=== PATIENT | male | born 1990 | race Caucasian/White ===

== ENCOUNTER 2019-08-02 06:12 | Emergency (ER) | payer MEDICAID, SELFPAY ==
[2019-08-02 06:14] VITALS: BP 134/73; PULSE 82; RESP 18; TEMP 36; O2SAT 98
--- NOTE | 2019-08-02 06:20 | ED.GENADUL_ITS ---
Discharge Plan Disposition Patient Disposition: HOME Condition: Good Discharge Details Chief Complaint: RespSymp Clinical Impression: Acute right otitis media, Bronchitis, URI (upper respiratory infection) Primary Care Provider: None,None ED Provider: Patricio Wolff Home Meds and New Rx's Prescriptions: New Symbicort 160-4.5 mcg/actuation HFA aerosol inhaler 2 puff IH BID Qty: 6 RF: 0 loratadine 10 mg capsule 10 mg PO DAILY Qty: 20 RF: 0 amoxicillin-pot clavulanate [Augmentin] 875-125 mg tablet 1 tab PO BID 7 Days Qty: 14 RF: 0 benzonatate [Tessalon Perles] 100 mg capsule 100 mg PO BID PRN (Reason: cough) Qty: 30 RF: 0 Discharge Instructions Instructions: Otitis Media (ED), Acute Bronchitis (ED) Additional Instructions: You have a bacterial infection in your right ear as well as bronchitis. This is likely all started from a virus. To help with the cough, please take the inhaler as directed. Please take the loratadine to help with your congestion, and the Tessalon Perles for the cough as well. Please take Augmentin as directed for treatment of your otitis media/ear infection. Continue to take Tylenol or Motrin as needed for any pain. If you notice any worsening of your symptoms, or any new symptoms such as vomiting, diarrhea, fever, chills, shortness of breath, chest pain, numbness, weakness, or fainting , please return immediately to the emergency department for reevaluation. Please follow up with your primary care provider as soon as possible for reassessment and reevaluation. As always, it was a pleasure participating in your medical care today. Medical Decision Making This is a pleasant 29-year-old male who presents today with 3 days of cough and congestion. Symptoms began with mild fever and chills 3 days ago, fever and chills have since resolved which is led to a cough for the last 3 days, productive yellow sputum. Physical exam demonstrates normal lung sounds, no evidence of respiratory distress. Notable right-sided otitis media. No clinical evidence of meningitis, respiratory compromise, or other significant abnormality. Signs and symptoms at this time are clinically consistent with mild bronchitis, mild URI symptoms and right-sided otitis media. Will give Augmentin for otitis media, loratadine for congestion, Symbicort inhaler for notable cough, Tessalon Perles for cough. Discussed red flags for which to return. Signs and symptoms at this time are clinically consistent with bronchitis, viral URI, and bacterial right-sided otitis media. I have extensively reviewed the treatment plan and discharge instructions with the patient. I have addressed all patient concerns at this time. The patient was made aware of what symptoms to monitor for that would warrant a return to the emergency department. Discussed the plan with the patient, they demonstrate verbal understanding and agreement with our assessment and plan at this time. HPI General Date/Time Provider Initiated Documentation: 08/02/19 06:12 . HPI Narrative: This is a pleasant 29-year-old male who has no significant past medical history who presents today for evaluation of cough for the last 3 days. Been notably persistent and gradually worsening. Admits to productive yellow sputum. He had one episode of small amount of blood tingeing after a vigorous episode of coughing. He denies any severe chest pain, chest heaviness, or significant shortness of breath. He denies any current fever or chills but did have some mild fever and chills 3 days ago and this symptoms all started. He denies any headache or neck pain. He does admit to mild sore throat. He denies any other complaints at this time. He denies any history of PE, recent surgeries, procedures, or history of clots. He denies any history of premature cardiac disease. He has no other complaints. No other modifying factors. He denies a rubbery, diarrhea, numbness, tingling, weakness. He denies any tobacco use. Related Data Home Medications Medication Instructions Recorded Confirmed amoxicillin-pot clavulanate 1 tab PO BID 7 Days #14 tab 08/02/19 [Augmentin] benzonatate [Tessalon Perles] 100 mg PO BID PRN #30 cap 08/02/19 budesonide-formoterol [Symbicort] 2 puff IH BID #6 gm 08/02/19 loratadine 10 mg PO DAILY #20 cap 08/02/19 Previous Rx's Medication Instructions Recorded amoxicillin-pot clavulanate 1 tab PO BID 7 Days #14 tab 08/02/19 [Augmentin] benzonatate [Tessalon Perles] 100 mg PO BID PRN #30 cap 10/20/19 budesonide-formoterol [Symbicort] 2 puff IH BID #6 gm 08/02/19 loratadine 10 mg PO DAILY #20 cap 08/02/19 Allergies Allergy/AdvReac Type Severity Reaction Status Date / Time venom-honey bee Allergy Anaphylaxsi Unverified 08/02/19 06:16 [bee venom (honey bee)] s General Stated Complaint: RespSymp SANTIAGO: 4 Review of Systems Review of Systems ROS Unobtainable: All systems reviewed & are unremarkable except as noted in HPI and below PFSH Social History Smoking/Tobacco Use Status: Never Alcohol Intake: current Alcohol Intake frequency: holidays/special occasions only Alcohol type: beer Drug use: Never Substance use type: does not use Do you feel safe at home: Yes Do you feel safe in your relationship?: Yes Exam Narrative Exam Narrative: 1.Const: Well-nourished, Well-developed, appearing stated age 2.Eyes: PERRL, no conjunctival injection, and symmetrical lids. 3.ENT: Atraumatic external nose and ears. Moist MM. Neck: Symmetric, trachea midline, No thyromegaly. Minimal erythema and cobblestoning of the posterior oropharynx. Right tympanic membrane is erythematous, slightly bulging, with mil d effusion. Left tympanic membrane demonstrates sawant pearly color, notable cerumen. No evidence of tonsillitis, peritonsillar abscess, or airway compromise. Patient demonstrates good movement of cervical neck. There is no nuchal rigidity, no nuchal tenderness. Patient is able to flex the neck without any difficulty or significant pain. Negative Kernig's and Brudzinski sign. 4.CVS: +S1/S2, No murmurs or gallops. Peripheral pulses 2+ and equal in all extremities. Brisk capillary refill in all extremities. 5.RESP: Unlabored respiratory effort. Clear to auscultation bilaterally. No wheezes rales or rhonchi 6.GI: Soft, Nontender/Nondistended, No hepatosplenomegaly. No guarding or rebound. 7.MSK: Normocephalic/Atraumatic, Extremities w/o deformity or ttp No cyanosis or clubbing, Normal movement of all extremities 8.Skin: Warm, Dry. No rashes or lesions. 9.Neuro: smoking pipes cleaner II-XII grossly intact. Sensation grossly intact, no focal neurologic deficits. 10.Psych: (AAO) x3. Appropriate mood and affect Course Vital Signs Vital signs: Vital Signs Temperature 36.0 C L 08/02/19 06:14 Pulse 82 08/02/19 06:14 Respiratory Rate 18 08/02/19 06:14 Blood Pressure 134/73 08/02/19 06:14 Pulse Oximetry 98 08/02/19 06:14 Temperature 36.0 C L 08/02/19 06:14 Temperature Source Skin 08/02/19 06:14 Pulse 82 08/02/19 06:14 Respiratory Rate 18 08/02/19 06:14 Respiratory Effort 08/02/19 06:18 Respiratory Depth Normal 08/02/19 06:17 Blood Pressure 134/73 08/02/19 06:14 Blood Pressure Position Sitting 08/02/19 06:14 Pulse Oximetry 98 08/02/19 06:14 Oxygen Delivery Method Room Air 08/02/19 06:14 Oxygen Flow Rate 0 08/02/19 06:14 Pain Level 3 08/02/19 06:14
== END 2019-08-02 06:35 | disposition home or self-care (01) ==
PROVIDERS: Emergency Provider Student in an Organized Health Care Education/Training Program
DX: H66.91 Otitis media, unspecified, right ear (principal); J20.9 Acute bronchitis, unspecified; J06.9 Acute upper respiratory infection, unspecified
CPT/HCPCS: 99283

== ENCOUNTER 2021-04-14 13:51 | Emergency (ER) | payer MEDICAID, SELFPAY ==
[2021-04-14 13:55] VITALS: BP 154/88; PULSE 86; RESP 17; TEMP 36.3; O2SAT 99
--- NOTE | 2021-04-14 14:00 | DI.CT_ITS ---
Exam(s) CT ABDOMEN PELVIS W EXAM: CT ABDOMEN PELVIS W CLINICAL HISTORY: Abd bloating, weight gain. TECHNIQUE: Imaging Protocol: Axial computed tomography images with coronal and sagittal reformatted images were created and reviewed CONTRAST MATERIAL: Intravenous: Omnipaque 350 Contrast volume:100 ml Oral: Yes COMPARISON: No exams were available for comparison FINDINGS: ABDOMEN: Lung Bases: Respiratory motion. Normal where visualized. Liver: Enlarged. Hepatic steatosis. No measurable mass. Gallbladder and biliary tract: No radiodense calculus or dilation. Pancreas: Normal density, no abnormal calcifications or inflammatory process. Spleen: Normal. Kidneys: Normal size, contour and axis. No radiodense stones or obstructive uropathy. No masses seen. Adrenal glands: No masses seen. Abdominal Aorta: Abdominal portion non-dilated. PELVIS: Bladder: Symmetric distention, no gross wall thickening. Bowel: No obstruction or bowel wall thickening. Normal appendix. Peritoneal cavity: No ascites, collection or mesenteric inflammatory response. Bones: Within normal limits. Reproductive organs: Within normal limits. Lymph nodes: Unremarkable. Impression: Unremarkable CT scan of the abdomen and pelvis. RADIATION DOSE DELIVERED: 1,148.27mGy.cm Total DLP DATA REPOSITORY: All CT scans at this facility are submitted to the National Radiology Data Registry (NRDR) Dose Index Registry (DIR) with the [employer] (ACR). RADIATION OPTIMIZATION: All CT scans at this facility use at least one of these dose optimization te chniques: automated exposure control; mA and/or kV adjustment per patient size (includes targeted exa ms where dose is matched to clinical indication); or iterative reconstruction.
--- NOTE | 2021-04-14 14:13 | ED.GENADUL_ITS ---
Discharge Plan Disposition Patient Disposition: HOME Condition: Stable Discharge Details Clinical Impression: Abdominal bloating, Chronic constipation Primary Care Provider: None,None ED Provider: Nneka Chang Home Meds and New Rx's Prescriptions: No Action No Known Home Meds RF: 0 Discharge Instructions Instructions: Constipation (ED), Gas and Bloating (ED) Additional Instructions: Drink plenty of fluids and get plenty of rest. You can purchase [id number] magnesium citrate and take as directed. It is generally recommended to drink 1/2 the bottle, wait 30 minutes and then if no relief drink the other half of the bottle. You can also add MiraLAX into your daily regimen as directed. It is advised that you research the best foods that are recommended to minimize abdominal bloating. You will receive a call from care management regarding a follow-up appointment with the primary care doctor to establish care and with general surgery if your symptoms do not improve or worsen for further evaluation. Return immediately to the emergency department if you develop any worsening or new concerning symptoms. Referrals: Zulma Guo MD [ [facility] STAFF PHYSICIAN] - Discharge Data Discharge Date/Time-TO BE ENTERED AT DEPARTURE: 04/14/21 17:26 Discharge Physician: Nneka Chang Medical Decision Making <Cuate Tian MD - Last Filed: 04/14/21 15:01> 31-year-old male reports 1 weeks to 2 months of abdominal bloating, distention, associated with pasty, unformed stools. Reports no significant change with dietary modification. Denies fever, no chest pain or shortness of breath, no vomiting. Patient slightly hypertensive but with otherwise reassuring vital signs. His exam does note some distention of the abdomen but is otherwise unremarkable. Differential diagnosis would include constipation, obstipation, intra-abdominal mass. Patient had screening laboratories and referred for CT imaging. Laboratories are fairly reassuring with a white count 10, hematocrit 46, platelets 359. Chemistries reassuring, total bili 1.2 with normal LFTs. Lipase 180. Patient be signed out to Dr. Chang pending review of CT images, please see her note regarding final impression and disposition. <Nneka Chang DO - Last Filed: 04/14/21 20:15> 1700 -- please see Dr. Tian's note for initial presentation, exam and plan. Case endorsed to follow-up on labs and imaging and final disposition. Labs reviewed. White blood cell count 10. Lipase within normal limits. Urinalysis negative CT reviewed and negative. Patient reassessed and he remains pain-free, only complaining of chronic abdominal bloating for the past 2 months. Had a long discussion with patient in the room regarding his findings and his complaints. Discussed the possibilities of abdominal bloating and distention and constipation related to diet, the possibility of irritable bowel syndrome, and recommendation to follow-up with surgery for further evaluation and consideration of outpatient EGD and colonoscopy. He is advised to try magnesium citrate tomorrow as directed. Advised to add MiraLAX into his diet as directed. Advised to continue to push fluids and to search dietary choices that minimize abdominal bloating. Patient placed on care management list to help arrange for follow-up appoint with the primary care doctor to establish care and to follow-up with surgery for further evaluation. Return immediately to the emergency department if you develop any worsening or new concerning symptoms. Medical Records Medical records reviewed: Yes I reviewed the patient's medical records. Imaging Data Radiologic Study: Radiologist's impression: CT Abdomen And Pelvis With Contrast Exam date and time: 04/14/2021 3:52 PM Age: 31 years old Clinical indication: Patient HX: Abdominal bloating; Additional info: PT states symptoms for 2 mos TECHNIQUE: Imaging protocol: Computed tomography of the abdomen and pelvis with contrast. Total images: 1201 COMPARISON: No relevant prior studies available. FINDINGS: Liver: Normal. No mass. Gallbladder and bile ducts: Normal. No calcified stones. No ductal dilation. Pancreas: Normal. No ductal dilation. Spleen: Normal. No splenomegaly. Adrenal glands: Normal. No mass. Kidneys and ureters: Normal. No hydronephrosis. Stomach and bowel: Unremarkable. No obstruction. No mucosal thickening. Appendix: No evidence of appendicitis. Intraperitoneal space: Unremarkable. No free air. No significant fluid collection. Vasculature: Unremarkable. No abdominal aortic aneurysm. Lymph nodes: Unremarkable. No enlarged lymph nodes. Urinary bladder: Unremarkable as visualized. Reproductive: Unremarkable as visualized. Bones/joints: Unremarkable. No acute fracture. Soft tissues: Unremarkable. IMPRESSION: No acute findings. Lab Data Lab results reviewed: Yes I reviewed the patient's lab results. HPI <Cuate Tian MD - Last Filed: 04/14/21 15:01> General Mode of arrival: ambulatory . Date/Time Provider Initiated Documentation: 04/14/21 13:52 . Limitations to Documentation: no limitations . Information obtained by: patient . History of Present Illness 31 year old M presents to the emergency department with the chief complaint of Abdominal bloating and weight gain, described as moderate, Quality is described as dull and constant, and is localized to the abdomen. Patient reports no radiation. Patient started experiencing this week(s) and it has been constant. No relieving factors improve symptom(s), No exacerbating factors reported . Patient notes denies fever/chills, loss of appetite and nausea/vomiting. Patient did receive the following treatments prior to arrival, none Related Data Home Medications Medication Instructions Recorded Confirmed Unknown [No Known Home Meds] 04/14/21 04/14/21 Allergies Allergy/AdvReac Type Severity Reaction Status Date / Time venom-honey bee Allergy Anaphylaxsi Unverified 04/14/21 14:02 [bee venom (honey bee)] s General Stated Complaint: Abd Prob SANTIAGO: 3 Review of Systems <Cuate Tian MD - Last Filed: 04/14/21 15:01> Narrative: No fever or vomiting. No chest pain or shortness of breath, no peripheral edema. Reports his stools are pasty. 8 systems reviewed and otherwise negative PFSH <Cuate Tian MD - Last Filed: 04/14/21 15:01> Social History Smoking/Tobacco Use Status: Never Smoking risk assessment performed?: Yes Alcohol Intake: current Alcohol Intake frequency: holidays/special occasions only Alcohol type: beer Drug use: Never Substance use type: does not use Do you feel safe at home: Yes Do you feel safe in your relationship?: Yes Exam <Cuate Tian MD - Last Filed: 04/14/21 15:01> Narrative Exam Narrative: GEN: awake, alert, oriented 3. Pleasant, well groomed, interactive. HEAD: Normocephalic, atraumatic ENT: Mucous membranes moist, oropharynx unremarkable, External ear exam unremarkable EYES: PERRL, EOMI NECK: Full ROM, no MAI, no menigismus CHEST/RESP: Nontender, clear to auscultation bilateral, no wheeze/rhonchi/rales CARDIOVASCULAR: RRR, no murmur, rub amadeo. 2+ Rad pulse bilateral ABDOMEN: Soft, distended, nontender, no mass. +Bowel sounds EXT: Full ROM, no edema, no rash Neuro: Grossly normal neurologic exam, conversant, interactive. Psych: Speech fluent, thoughts congruent, affect normal Course <Cuate Tian MD - Last Filed: 04/14/21 15:01> Vital Signs Vital signs: Vital Signs Temperature 36.3 C L 04/14/21 13:55 Pulse 86 04/14/21 13:55 Respiratory Rate 17 04/14/21 13:55 Blood Pressure 154/88 H 04/14/21 13:55 Pulse Oximetry 99 04/14/21 13:55 Temperature 36.3 C L 04/14/21 13:55 Temperature Source Temporal Artery Scan 04/14/21 13:55 Pulse 86 04/14/21 13:55 Respiratory Rate 17 04/14/21 13:55 Respiratory Effort 04/14/21 14:00 Blood Pressure 154/88 H 04/14/21 13:55 Blood Pressure Position Standing 04/14/21 13:55 Pulse Oximetry 99 04/14/21 13:55 Oxygen Delivery Method Room Air 04/14/21 13:55 Oxygen Flow Rate 0 04/14/21 13:55 Pain Level 6 04/14/21 13:55 Sign Out <Cuate Tian MD - Last Filed: 04/14/21 15:01> Sign Out Data: Sign Out Comment: followup ct Last updated by Cuate Tian MD at 04/14/21 15:06
[2021-04-14 14:24] LABS: Abs Immature Grans 0.04 10^3/uL (0.0-0.06); Absolute Basophil Count 0.08 10^3/uL (0.0-0.2); Absolute Eosinophil Count 0.21 10^3/uL (0.0-0.7); Absolute Lymphocyte Count 4.42 10^3/uL (1.2-3.4); Absolute Monocyte Count 0.63 10^3/uL (0.1-0.8); Absolute Neutrophil Count 5.49 10^3/uL (1.2-6.7); Basophils % 0.7; Eosinophils % 1.9; HCT 46.2 % (40.0-50.0); HGB 15.2 g/dL (13.5-17.5); Immature Grans % 0.4; Lymphocytes % 40.7; MCH 28.4 pg (27.0-33.0); MCHC 32.9 % (32.0-36.0); MCV 86.2 fL (80-95); MPV 9.4 fL (8.0-11.0); Monocytes % 5.8; Neutrophils % 50.5; Nucleated RBC 0 %; Platelet Count 359 10^3/uL (130-400); RBC 5.36 10^6/uL (4.36-5.78); RDW 12.8 % (11.8-14.1); RDW-SD 40.1 fL; WBC 10.87 10^3/uL (4.4-10.8)
[2021-04-14] MEDS: Breeza Beverage 473 ML BTL PO ×2 (14:24→14:25)
[2021-04-14] MEDS: Omnipaque 350 MG/ML 50 ML BTL PO (14:25)
[2021-04-14] MEDS: Normal Saline 1,000 ML 125 ML IV (14:25)
[2021-04-14 14:38] LABS: ALT 52 U/L (16-63); AST 15 U/L (15-37); Albumin 4.1 g/dL (3.4-5.0); Alkaline Phosphatase 60 U/L (46-116); Anion Gap 11.2 mmol/L (3-11); BUN 17 mg/dL (7-18); Bilirubin, Total 1.2 mg/dL (0.2-1.0); CO2 25.8 mmol/L (21.0-32.0); CREATININE 1.3 mg/dL (0.70-1.30); Calcium 9.1 mg/dL (8.5-10.1); Chloride 104 mmol/L (98-107); Glucose 112 mg/dL (74-106); Lipase 180 U/L (73-393); Magnesium 1.8 mg/dL (1.8-2.4); Potassium 3.5 mmol/L (3.5-5.1); Sodium 141 mmol/L (136-145); Total Protein 7.8 g/dL (6.4-8.2)
[2021-04-14 15:46] VITALS: BP 133/83; PULSE 58; RESP 16; O2SAT 100
[2021-04-14 15:51] LABS: Bilirubin Negative (Negative); Blood Negative (Negative); Clarity Clear (Clear); Glucose Negative (Negative); Ketones Negative (Negative); Leukocyte Esterase Negative (Negative); Nitrite Negative (Negative); Specific Gravity 1.025 (1.005-1.025); Urobilinogen 0.2 EU/dL (Up TO 0.2); pH 5.5 (5-8)
[2021-04-14] MEDS: Omnipaque 350 MG/ML 100 ML BTL IJ (16:01)
[2021-04-14] MEDS: Normal Saline - Diluent 50 ML VIAL IV (16:02)
--- NOTE | 2021-04-14 16:25 | DI.VRAD_ITS ---
PROCEDURE INFORMATION: Exam: CT Abdomen And Pelvis With Contrast Exam date and time: 04/14/2021 3:52 PM Age: 31 years old Clinical indication: Patient HX: Abdominal bloating; Additional info: PT states symptoms for 2 mos TECHNIQUE: Imaging protocol: Computed tomography of the abdomen and pelvis with contrast. Total images: 1201 COMPARISON: No relevant prior studies available. FINDINGS: Liver: Normal. No mass. Gallbladder and bile ducts: Normal. No calcified stones. No ductal dilation. Pancreas: Normal. No ductal dilation. Spleen: Normal. No splenomegaly. Adrenal glands: Normal. No mass. Kidneys and ureters: Normal. No hydronephrosis. Stomach and bowel: Unremarkable. No obstruction. No mucosal thickening. Appendix: No evidence of appendicitis. Intraperitoneal space: Unremarkable. No free air. No significant fluid collection. Vasculature: Unremarkable. No abdominal aortic aneurysm. Lymph nodes: Unremarkable. No enlarged lymph nodes. Urinary bladder: Unremarkable as visualized. Reproductive: Unremarkable as visualized. Bones/joints: Unremarkable. No acute fracture. Soft tissues: Unremarkable. IMPRESSION: No acute findings. Dictated and Authenticated by: Merrick Hernandez MD. Ordering:ADALBERTO Cuello MD
[2021-04-14 17:25] VITALS: BP 153/83; PULSE 64; RESP 17; TEMP 36.3; O2SAT 98
--- NOTE | 2021-04-14 19:46 | NUR.NOTE ---
Nursing Note: REFERAL SENT TO CM TO EST PCP THEN MAKE APPT WITH SURGERY FOR CONSTIPATION AND BLOAT 04/14/21
--- NOTE | 2021-04-18 12:39 | PDOC.ERCMPRO ---
- If Service Date Differs Date of service: 04/18/21 Time of Service: 12:39 Care Management Progress Note Dawson is seen in the ED for abdominal bloating and chronic constipation. At the request of ED provider, CM coordinates a referral to Tamar Sanderson DO, of [facility], on-call provider, to assist Dawson in obtaining a follow up appointment and in establishing care with a PCP. A referral is also made to [facility], per ED provider.
== END 2021-04-14 17:26 | disposition home or self-care (01) ==
PROVIDERS: Emergency Medicine; Emergency Provider Physician Assistant
DX: R14.0 Abdominal distension (gaseous) (principal); K59.09 Other constipation
CPT/HCPCS: 36415; 80053; 83690; 96361; 99285; 74177; 81003; 83735; 85025; 99284; J3490; Q9967

== ENCOUNTER 2023-05-27 16:50 | Emergency (ER) | payer MEDICAID, SELFPAY ==
[2023-05-27 16:54] VITALS: BP 153/81; PULSE 74; RESP 15; TEMP 36.4; O2SAT 97
--- NOTE | 2023-05-27 17:00 | DI.CT_ITS ---
Exam(s) CT ABDOMEN PELVIS W EXAM: CT ABDOMEN PELVIS W CLINICAL HISTORY: upper abdominal pain. TECHNIQUE: Imaging Protocol: Axial computed tomography images with coronal and sagittal reformatted images were created and reviewed CONTRAST MATERIAL: Intravenous: Omnipaque 350 Contrast volume:100 ml Oral: / no COMPARISON: CT CT ABDOMEN PELVIS W from 04/14/2021 FINDINGS: ABDOMEN: Lung Bases: Normal where visualized. Liver: Mildly enlarged. Fatty infiltration. No measurable mass. Gallbladder and biliary tract: No radiodense calculus or dilation. Pancreas: Normal density, no abnormal calcifications or inflammatory process. Spleen: Normal. Kidneys: Normal size, contour and axis. No radiodense stones or obstructive uropathy. No suspicious m asses seen. Adrenal glands: No masses seen. Abdominal Aorta: Abdominal portion non-dilated. Soft tissues: Unremarkable. PELVIS: Bladder: No gross wall thickening. No calculi.No focal mass. Bowel: No obstruction. No bowel wall thickening. Appendix normal. Peritoneal cavity: No ascites, collection or mesenteric inflammatory response. Bones: Unremarkable for age. Reproductive organs: Within normal limits. Lymph nodes: Unremarkable. Impression: No acute abnormality. Enlarged fatty liver noted. RADIATION DOSE DELIVERED: 1,228.71mGy.cm Total DLP DATA REPOSITORY: All CT scans at this facility are submitted to the National Radiology Data Registry (NRDR) Dose Index Registry (DIR) with the [employer] (ACR). RADIATION OPTIMIZATION: All CT scans at this facility use at least one of these dose optimization te chniques: automated exposure control; mA and/or kV adjustment per patient size (includes targeted exa ms where dose is matched to clinical indication); or iterative reconstruction.
--- NOTE | 2023-05-27 17:06 | ED.GENADUL_ITS ---
Discharge Plan Disposition Patient Disposition: Home Discharge Details Chief Complaint: Abd Prob Clinical Impression: Hepatic steatosis, Abdominal pain Primary Care Provider: None,None ED Provider: Zhao Bravo Home Meds and New Rx's Prescriptions: No Action No Known Home Meds Discharge Instructions Instructions: Non-Alcoholic Fatty Liver Disease (ED), Abdominal Pain (ED) Additional Instructions: your cat scan did not show concerning findings at this time, you do have evidence of hepatic steatosis. follow up with your primary care provider within 1-2 weeks if you feel more ill, have severe worsening pain, or have persistent vomiting return to the emergency department Medical Decision Making 33 yo male with hx of intermittent abdominal bloating comes in with 3 weeks of feeling his abdomen is distended and bloated and has upper abdominal discomfort. He has no fevers, chest pain, dyspnea, nv/, diarrhea. He arrives stable speaking clearly in no distress. He has a soft abdomen that is not distended on exam but is tender in the luq and ruq. Suspect food allergy vs ibs, but given location of discomfort will proceed with cbc, cmp, lipase and ct abd/pelvis to further evaluate. labs show mild increase in creatinine from baseline, ct without acute findings, does have heaptic steatosis. Pt stable, minimal luq and ruq tenderness without guarding or rebound, suspect ibs vs food allergy, given reassuring imaging and labs feel he is stable for d/c and can f/u with his pcp, return precautions given Differential Diagnosis Differential Diagnosis: food sensitivity, constipation, cholecystitis Medical Records Medical records reviewed: Yes I reviewed the patient's medical records. Imaging Data Radiologic Study: Attestation: I personally reviewed and interpreted this imaging study as follows: Imaging: CT Scan Radiologist's impression: Patient Name: Dawson Ramirez Unit #: [id number] Loc: ER ? Ordering Provider:? Zhao Bravo M.D. Status: REG ER ? Primary Care Provider: None,None Date of Exam: 05/27/23 Sex: M ? : 1990 Age: 33 ? Exam(s) a CT:CT abdomen & pelvis w Exam(s) CT ABDOMEN ? PELVIS W EXAM:? CT ABDOMEN ? PELVIS W CLINICAL HISTORY: ? upper abdominal pain.? TECHNIQUE:? Imaging Protocol: Axial computed tomography images with coronal and sagittal reformatted images were created and reviewed CONTRAST MATERIAL:? Intravenous: Omnipaque 350 Contrast volume:100 ml Oral: / no COMPARISON:? CT CT ABDOMEN ? PELVIS W from 04/14/2021 FINDINGS: ABDOMEN: Lung Bases: Normal where visualized. Liver: Mildly enlarged.? Fatty infiltration.? No measurable mass. Gallbladder and biliary tract: No radiodense calculus or dilation.? Pancreas: Normal density, no abnormal calcifications or inflammatory process. Spleen: Normal. Kidneys: Normal size, contour and axis. No radiodense stones or obstructive uropathy. No suspicious masses seen. Adrenal glands: No masses seen. Abdominal Aorta: Abdominal portion non-dilated. Soft tissues: Unremarkable. PELVIS:? Bladder:? No gross wall thickening. No calculi.No focal mass. Bowel: No obstruction. ? No bowel wall thickening. Appendix normal. Peritoneal cavity: No ascites, collection or mesenteric inflammatory response. Bones: Unremarkable for age.? Reproductive organs: Within normal limits. Lymph nodes: Unremarkable.? Impression: No acute abnormality.? Enlarged fatty liver noted. Lab Data Lab results reviewed: Yes I reviewed the patient's lab results. HPI General Mode of arrival: ambulatory . Date/Time Provider Initiated Documentation: 05/27/23 16:51 . Limitations to Documentation: no limitations . Information obtained by: patient . History of Present Illness 33 year old M presents to the emergency department with the chief complaint of abdominal bloating, described as moderate, Patient started experiencing this week(s) (3) and it has been constant. No relieving factors improve symptom(s), No exacerbating factors reported . Patient notes denies chest pain, fever/chills and shortness of breath. Patient did receive the following treatments prior to arrival, none Related Data Home Medications Medication Instructions Recorded Confirmed Unknown [No Known Home Meds] 04/14/21 05/27/23 Allergies Allergy/AdvReac Type Severity Reaction Status Date / Time venom-honey bee Allergy Anaphylaxsi Verified 05/27/23 16:58 [bee venom (honey bee)] s General Stated Complaint: Abd Prob SANTIAGO: 3 Review of Systems All systems reviewed & are unremarkable except as noted in HPI and below Constitutional Constitutional: Denies chills, Denies fever(s) and Denies weakness Cardiovascular Cardiovascular: Denies chest pain and Denies dyspnea Respiratory Respiratory: Denies cough and Denies dyspnea Gastrointestinal Gastrointestinal: Denies nausea and Denies vomiting Integumentary/Breasts Skin/Breast: Denies rash Neurologic Neurologic: Denies weakness PFSH All Active Problems (Updated 05/27/23 @ 19:00 by Zhao Bravo MD) Abdominal pain (Acute) Total bilirubin, elevated (Acute) Nevus of left knee (Acute) Hepatic steatosis (Acute) CT 04/2021-->TLCs & EtOH reduction Medical History Hepatic steatosis CT 04/2021-->TLCs & EtOH reduction Social History (Updated 02/15/23 @ 14:01 by Kasia Boss) Smoking/Tobacco Use Status: Current-Occasional Tobacco Type: smokeless tobacco Smokeless tobacco user: chewing tobacco Quit status: considering quitting Second Hand Exposure: No Smoking risk assessment performed?: Yes Alcohol Intake: current Alcohol Intake frequency: holidays/special occasions only Alcohol type: beer Details: 2-4 times monthly, 1-2 at a time Drug use: Never Substance use type: does not use Adopted: No Caregiver/Support person: No Household members: spouse and children Housing: house Number of Children: 2 number of grandchildren: 0 Communication Needs: None Education Level: high school Do you need help understanding health information?: Rarely current occupation: self employed Pets and animals: Yes Pets and animals: dog(s) Sexually active: Yes Do you think of yourself as: straight/heterosexual Current gender identity: male What is your relationship status?: How often do you talk on the phone with friends or family?: three or more times per week How often do you get together with friends or relatives?: once per week Do you belong to any clubs or organized social groups?: no Panel score (0-1 are the most socially isolated patients): 2 What type of physical activity do you participate in: walking Duration: 45-60 minutes/day Seatbelt use: always Helmet use: Yes Drive intox or ride w/intox stage driver: No Do you feel safe at home: Yes Do you feel safe in your relationship?: Yes Exam Const General: no acute distress Orientation: alert HENMT Head: normal to inspection Ears: external ears normal General nose exam: external nose normal Mouth: moist mucous membranes Eyes General: appearance normal, both eyes and all related structures Neck Neck: normal visual inspection Resp Effort & Inspection: normal respiratory effort and able to speak in complete sentences Cardio Rate: regular rate GI Palpation: soft and tender Skin General skin exam: no rashes or lesions noted Neuro General: patient alert and patient oriented x3 Extrem General: normal to inspection Psych Mental Status: mental status grossly normal Course Vital Signs Vital signs: Vital Signs Temperature 36.4 C L 05/27/23 16:54 Pulse 74 05/27/23 16:54 Respiratory Rate 15 05/27/23 16:54 Blood Pressure 153/81 H 05/27/23 16:54 Pulse Oximetry 97 05/27/23 16:54 Temperature 36.4 C L 05/27/23 16:54 Temperature Source Tympanic 05/27/23 16:54 Pulse 74 05/27/23 16:54 Respiratory Rate 15 05/27/23 16:54 Respiratory Effort Normal 05/27/23 16:57 Blood Pressure 153/81 H 05/27/23 16:54 Blood Pressure Position Sitting 05/27/23 16:54 Pulse Oximetry 97 05/27/23 16:54 Oxygen Delivery Method Room Air 05/27/23 16:54 Oxygen Flow Rate 0 05/27/23 16:54 Pain Level 5 05/27/23 16:54 PAWSS Have you Been Recently Intoxicated or Drunk Within the Last 30 days?: No Have you Ever Experienced Previous Episodes of Alcohol Withdrawal?: No Have you ever Experienced Withdrawal Seizures?: No Have you ever Experienced Delirium Tremens(DT)s?: No Have you ever undergone Alcohol Rehabilitation Treatment (i.e, inpt ot outpatient treatment programs)?: No Have you ever Experienced Blackouts?: No Have you ever Combined Alcohol with other Downers within the last 90 days?: No Have you ever Combined Alcohol with any other Substance of Abuse during the last 90 days?: No Result: 0
[2023-05-27 17:13] LABS: Abs Immature Grans 0.03 10^3/uL (0.0-0.06); Absolute Basophil Count 0.07 10^3/uL (0.0-0.2); Absolute Eosinophil Count 0.27 10^3/uL (0.0-0.7); Absolute Monocyte Count 0.79 10^3/uL (0.1-0.8); Absolute Neutrophil Count 4.22 10^3/uL (1.2-6.7); Basophils % 0.7; Eosinophils % 2.7; HCT 44.3 % (40.0-50.0); HGB 14.7 g/dL (13.5-17.5); Immature Grans % 0.3; Lymphocytes % 47.2; MCH 28.4 pg (27.0-33.0); MCHC 33.2 % (32.0-36.0); MCV 86 fL (80-95); MPV 9.3 fL (8.0-11.0); Monocytes % 7.8; Neutrophils % 41.3; Platelet Count 336 10^3/uL (130-400); RBC 5.17 10^6/uL (4.36-5.78); RDW 12.8 % (11.8-14.1); RDW-SD 39.9 fL; WBC 10.18 10^3/uL (4.4-10.8)
[2023-05-27 17:24] LABS: Bilirubin Negative (Negative); Blood Negative (Negative); Clarity Clear (Clear); Glucose Negative (Negative); Ketones Trace mg/dL (Negative); Leukocyte Esterase Negative (Negative); Nitrite Negative (Negative); Specific Gravity 1.025 (1.005-1.025); Urobilinogen 0.2 mg/dL (Up to 0.2)
[2023-05-27 17:27] LABS: ALT 47 U/L (16-63); AST 12 U/L (15-37); Albumin 4.1 g/dL (3.4-5.0); Alkaline Phosphatase 70 U/L (46-116); Anion Gap 8.4 mmol/L (3-11); BUN 24 mg/dL (7-18); Bilirubin, Total 0.8 mg/dL (0.2-1.0); CO2 28.6 mmol/L (21.0-32.0); CREATININE 1.7 mg/dL (0.70-1.30); Calcium 9.1 mg/dL (8.5-10.1); Chloride 105 mmol/L (98-107); Estimated GFR 53.91 (mL/min/1.73m2); Glucose 106 mg/dL (74-106); Lipase 39 U/L (16-77); Potassium 4.3 mmol/L (3.5-5.1); Sodium 142 mmol/L (136-145); Total Protein 7.7 g/dL (6.4-8.2)
[2023-05-27] MEDS: Normal Saline - Diluent 50 ML VIAL IJ (17:53)
[2023-05-27] MEDS: Omnipaque 350 MG/ML 100 ML BTL IJ (17:54)
[2023-05-27 19:08] VITALS: BP 137/77; PULSE 53
== END 2023-05-27 19:09 | disposition home or self-care (01) ==
PROVIDERS: Emergency Provider Emergency Medicine
DX: K76.0 Fatty (change of) liver, not elsewhere classified (principal); R10.9 Unspecified abdominal pain
CPT/HCPCS: 80053; 83690; 99285; 74177; 81003; 83735; 85025; 99284; J3490

== ENCOUNTER 2023-06-11 03:19 | Outpatient (CLI) | payer MEDICAID, SELFPAY ==
[2023-06-11 08:06] LABS: Anion Gap 5.3 mmol/L (3-11); BUN 15 mg/dL (7-18); CO2 29.7 mmol/L (21.0-32.0); CREATININE 1.1 mg/dL (0.70-1.30); Calcium 9.2 mg/dL (8.5-10.1); Calculated LDL 118 mg/dL (<100); Chloride 103 mmol/L (98-107); Cholesterol 192 mg/dL (<200); Glucose 110 mg/dL (74-106); HDL Cholesterol 49 mg/dL (40-60); Potassium 3.9 mmol/L (3.5-5.1); Sodium 138 mmol/L (136-145); TSH (W/Ref FT4) 1.85 uIU/mL (0.36-3.74); Triglyceride 128 mg/dL (<150)
[2023-06-13 12:18] LABS: IgA 291 mg/dL (85-499); Interpretation (See Note); Tissue Transglutaminase IgA 1.4 U/mL (<4.0)
[2023-06-13 12:23] LABS: Baker's Yeast, IgE <0.10 kU/L (<0.70); Banana, IgE <0.10 kU/L (<0.70); Barley, IgE <0.10 kU/L (<0.70); Beef IgE <0.10 kU/L (<0.70); Black/White Pepper IgE <0.10 kU/L (<0.70); Broccoli IgE <0.10 kU/L (<0.70); Cacao/Cocoa, IgE <0.10 kU/L (<0.70); Cinnamon, IgE <0.10 kU/L (<0.70); Corn-Food IgE <0.10 kU/L (<0.70); Egg Whole IgE <0.10 kU/L (<0.70); Milk, IgE <0.10 kU/L (<0.70); Onion, IgE <0.10 kU/L (<0.70); Soybean IgE <0.10 kU/L (<0.70); Strawberry, IgE <0.10 kU/L (<0.70); White Potato, IgE <0.10 kU/L (<0.70)
[2023-06-13 12:39] LABS: Milk, IgE <0.10 kU/L (<0.70)
[2023-06-18 17:25] LABS: Egg Whole IgG 9.3 mcg/mL (<2.0)
== END 2023-06-11 03:20 | disposition home or self-care (01) ==
LOC: LBO 03:19
PROVIDERS: Absent Provider Nurse Practitioner; Referring Provider Nurse Practitioner; Visit Provider Nurse Practitioner
DX: R79.89 Other specified abnormal findings of blood chemistry (principal); K59.09 Other constipation; R14.0 Abdominal distension (gaseous); K76.0 Fatty (change of) liver, not elsewhere classified; R12 Heartburn; E66.9 Obesity, unspecified; Z13.220 Encounter for screening for lipoid disorders; Z01.82 Encounter for allergy testing
CPT/HCPCS: 36415; 80048; 80061; 82784; 83516; 86001; 86003; 84443

== ENCOUNTER 2024-11-26 08:43 | Emergency (ER) | payer MEDICAID, SELFPAY ==
[2024-11-26 08:44] VITALS: BP 147/82; PULSE 66; RESP 14; TEMP 36.6; O2SAT 97
[2024-11-26 08:51] VITALS: BP 147/82; PULSE 66; RESP 14; TEMP 36.6; O2SAT 97
--- NOTE | 2024-11-26 09:01 | W.ED.GENAD ---
Discharge Plan Disposition Patient Disposition: Home Condition: Stable Discharge Details Clinical Impression: Upper respiratory infection Primary Care Provider: Chitra Gould ED Provider: Patricio Pickens Home Meds and New Rx's Prescriptions: New benzonatate 150 mg capsule 150 mg PO TID PRNQty: 30 0RF Continued multivitamin Tablet 1 tab PO DAILY Discharge Instructions Instructions: Benzonatate, Upper Respiratory Infection ED Additional Instructions: You were seen in the emergency department for your upper respiratory infection, this is low most likely a viral illness like the common cold. Your lungs sound clear in all ramos I do not think a chest x-ray is warranted at this time. Your COVID and flu swab is negative. I am prescribing you a cough suppressant to help with your throat irritation called [facility] [place]. Please use tea with honey to help symptomatic throat pain. Please use therapeutic dosing of Tylenol (acetamenophen) & Advil (ibuprofen) in an alternating fashion as follows: Take 1000mg of Tylenol every 6 hours without missing doses- that is 4 times per day. Fpc in between the Tylenol dosings, take 400-600mg of Advil also on a 6 hour schedule, that is also 4 times per day. The daily maximum dosing of Tylenol is 4000mg, and the daily maximum dosing of Advil is 2400mg. This is safe to do for weeks. Please note that some common cold medications & prescription pain medications may contain acetamenophen and you need to read OTC drug labels and factor that in to maximum daily dosings. Please follow-up with your primary care appointment on the as planned, please return to the emergency department for shortness of breath or other emergent concerns Referrals: Chitra Gould, KIMBERLEE [Primary Care Provider] - Discharge Data Discharge Date/Time-TO BE ENTERED AT DEPARTURE: 11/26/24 09:29 HPI General Date/Time Provider Initiated Documentation: 11/26/24 09:01. HPI Narrative: 34 year-old male presents to ED today by POV/ambulating with a chief complaint of cough/cold symptoms for the past 3-4 days, sore throat with coughing, resolved fever/chills. Quality described as generalized cold symptoms, no radiation to crushing chest pain, fatigue, dizziness, syncope, nausea/vomiting, diarrhea, respiratory distress. Severity is described as mild to moderate. Palliating factors include ibuprofen and mucinex with relief, states he may be on the other side of acute illness and improving. Provoking factors include nothing specific. Patient not anticoagulated. Related Data Home Medications ?Medication ?Instructions ?Recorded ?Confirmed multivitamin 1 tab PO DAILY 05/29/23 11/26/24 benzonatate 150 mg capsule 150 mg PO TID PRN #30 caps 11/26/24 Previous Rx's ?Medication ?Instructions ?Recorded benzonatate 150 mg capsule 150 mg PO TID PRN #30 caps 11/26/24 Allergies Allergy/AdvReac Type Severity Reaction Status Date / Time venom-honey bee (bee venom Allergy Anaphylaxsi Verified 11/26/24 08:49 (honey bee)) s General Stated Complaint: RespSymp SANTIAGO: 4 Review of Systems All systems reviewed & are unremarkable except as noted in HPI and below Exam Narrative Exam Narrative: GENERAL APPEARANCE: Well-nourished, non-toxic, awake and alert, atraumatic, no acute distress. SKIN: Warm, pink, dry, intact, without rashes/lesions/ulcerations. HEAD: Normocephalic, atraumatic, normal hair distribution for gender/age. EYES: Normal conjunctiva, no exudates on lids/lashes. ENT: Nares patent, no circumoral cyanosis, no facial swelling, benign posterior oropharynx NECK: Supple, trachea midline, painless cervical ROM. LUNGS/CHEST: Lungs CTA bilaterally, non-labored respirations, normal A/P diameter, symmetrical expansion, no chest wall deformity HEART (CV/PV): Regular rate and rhythm without murmur, no peripheral edema, no JVD. ABDOMEN: Soft, non-distended, no guarding. MSK: Normal ROM, no swelling/deformity to bilateral UEs or LEs, moving all extremities without weakness, no cyanosis, spine midline without tenderness, normal curvature. NEURO: Mental Status AAOx4 - alert to person, place, time, events No facial droop, no forehead involvement. Motor: No focal weakness - strength 5/5 in bilateral UEs and LEs, proximal and distal, symmetric. Sensory: sensation intact to light touch globally. Gait normal: patient ambulated without ataxia into ED room. PSYCH: euthymic, cooperative, pleasant, appropriate speech Course Vital Signs Vital signs: Vital Signs Temperature 36.6 C 11/26/24 08:44 Pulse 66 11/26/24 08:44 Respiratory Rate 14 11/26/24 08:44 Blood Pressure 147/82 H 11/26/24 08:44 Pulse Oximetry 97 11/26/24 08:44 Temperature 36.6 C 11/26/24 08:51 Temperature Source Oral 11/26/24 08:51 Pulse 66 11/26/24 08:51 Respiratory Rate 14 11/26/24 08:51 Blood Pressure 147/82 H 11/26/24 08:51 Blood Pressure Position Sitting 11/26/24 08:51 Pulse Oximetry 97 11/26/24 08:51 Oxygen Delivery Method Room Air 11/26/24 08:51 Oxygen Flow Rate 0 11/26/24 08:51 Pain Level 5 11/26/24 08:51 Medical Decision Making This dictation utilizes [id number] dictation software and may contain unedited grammatical errors. 34 year-old male presents to ED today by POV/ambulating with a chief complaint of cough/cold symptoms for the past 3-4 days, sore throat with coughing, resolved fever/chills. Quality described as generalized cold symptoms, no radiation to crushing chest pain, fatigue, dizziness, syncope, nausea/vomiting, diarrhea, respiratory distress. Severity is described as mild to moderate. Palliating factors include ibuprofen and mucinex with relief, states he may be on the other side of acute illness and improving. Provoking factors include nothing specific. Patients' medical history: Negative, otherwise healthy. Family and social history: Noncontributory. Pertinent exam findings / vital signs include lungs CTA, nontoxic, no respiratory distress, benign posterior oropharynx. Differential / pathologies of concern include viral syndrome, COVID/flu, unlikely pneumonia, not hypoxic respiratory failure. Diagnostic studies of: -POC COVID/flu antigen-negative. Interventions of: -Rx for benzonatate to aid with sleep due to cough. ED Course/Assessment/Plan: 34 otherwise [id number] male presents with likely viral syndrome of upper respiratory infection, no evidence for pneumonia with lungs completely clear, no respiratory distress, no hypoxia, counseled on continued use of Tylenol and ibuprofen and Mucinex, provided benzonatate to take as needed basis for cough and helping with sleeping at night. Recommend he follow-up with his PCP appointment on the 19th, strict return criteria for any respiratory distress, intractable nausea or vomiting or other emergent concern. Findings not consistent with hypoxic respiratory failure, respiratory distress, PE, other emergent pathology. Disposition of upper respiratory infection. Patient verbalized understanding of the plan and return to ED criteria and engaged in shared decision making. Medical Records Medical records reviewed: Yes I reviewed the patient's medical records. Quality:SDOH Health Related Social Needs: No Data to Display PFSH All Active Problems (Updated 11/26/24 @ 09:21 by DEV Chaudhary) Upper respiratory infection (Acute) Snoring (Acute) Tobacco chew use (Acute) Total bilirubin, elevated (Acute) Nevus of left knee (Acute) Hepatic steatosis (Acute) CT 04/2021-->TLCs & EtOH reduction Medical History Hepatic steatosis CT 04/2021-->TLCs & EtOH reduction Family History (Updated 05/29/23 @ 08:17 by Chitra Gould NP) Father Diabetes Mother Diabetes Social History (Updated 05/29/23 @ 08:05 by Pamela Clifford LPN) Smoking/Tobacco Use Status: Current-Occasional Tobacco Type: smokeless tobacco Smokeless tobacco user: chewing tobacco Quit status: considering quitting Second Hand Exposure: No Smoking risk assessment performed?: Yes Alcohol Intake: current Alcohol Intake frequency: holidays/special occasions only Alcohol type: beer Details: 2-4 times monthly, 1-2 at a time Drug use: Never Substance use type: does not use Counseling given: No Adopted: No Caregiver/Support person: No Household members: spouse and children Housing: house Number of Children: 2 number of grandchildren: 0 Communication Needs: None Education Level: high school Do you need help understanding health information?: Rarely current occupation: self employed - solo truck driver Pets and animals: Yes Pets and animals: dog(s) Sexually active: Yes Do you think of yourself as: straight/heterosexual Current gender identity: male What is your relationship status?: How often do you talk on the phone with friends or family?: three or more times per week How often do you get together with friends or relatives?: once per week Do you belong to any clubs or organized social groups?: no Panel score (0-1 are the most socially isolated patients): 2 What type of physical activity do you participate in: walking Duration: 45-60 minutes/day Seatbelt use: always Helmet use: Yes Drive intox or ride w/intox sweeper driver: No Working smoke detector in home: Yes Carbon monox detector in home: Yes Do you feel safe at home: Yes Do you feel safe in your relationship?: Yes
--- NOTE | 2024-11-26 09:55 | NUR.NOTE ---
[facility] question about the dose of the Benzonatate. They only have 100 or 200 not 150. Hilario Pickens advised that I could tell pharmacy that they could give the patient 100.
== END 2024-11-26 09:29 | disposition home or self-care (01) ==
LOC: ER 09:23
PROVIDERS: Emergency Provider Physician Assistant; PCP Nurse Practitioner
DX: J06.9 Acute upper respiratory infection, unspecified (principal); F17.220 Nicotine dependence, chewing tobacco, uncomplicated
CPT/HCPCS: 87426; 99283

== ENCOUNTER 2025-07-26 02:11 | Outpatient (CLI) | payer MEDICAID, SELFPAY ==
--- NOTE | 2025-07-26 08:55 | DI.US_ITS ---
Exam(s) US ABDOMEN EXAM: US ABDOMEN CLINICAL HISTORY: chronic diarrhea,epigastric pain,hepatic steatosis,r10.13 TECHNIQUE: Ultrasound abdomen performed using standard protocol. COMPARISON: CT CT ABDOMEN PELVIS W from 05/27/2023 FINDINGS: LIVER: 19.3 cm in length. There is mild to moderately increased liver echogenicity consistent with hepatic steatosis. No focal liver lesions are seen. GALLBLADDER: No evidence of cholelithiasis. No evidence of wall thickening. No pericholecystic fluid identified. PHILLIPS'S SIGN: Negative. BILIARY SYSTEM: No intrahepatic or extrahepatic biliary ductal dilation. KIDNEYS: Kidneys are symmetric in size. No evidence of renal calculi. No evidence of hydronephrosis. No renal mass or cyst identified. PANCREAS: Normal where visualized. SPLEEN: Not enlarged. ABDOMINAL AORTA AND IVC: Visualized portions normal caliber. ASCITES: None seen. IMPRESSION: Mildly enlarged liver. Mild to moderate hepatic steatosis. DATA REPOSITORY:
== END 2025-07-26 02:31 ==
LOC: DI 02:11
PROVIDERS: PCP Nurse Practitioner; Visit Provider Emergency Medicine
DX: K52.9 Noninfective gastroenteritis and colitis, unspecified; R06.83 Snoring; K76.0 Fatty (change of) liver, not elsewhere classified
CPT/HCPCS: 76700

== ENCOUNTER 2025-07-26 10:02 | Outpatient (CLI) | payer MEDICAID, SELFPAY ==
[2025-07-26 10:58] LABS: Amylase 52 U/L (25-115)
[2025-07-26 11:29] LABS: ALT 41 U/L (16-63); AST 15 U/L (15-37); Albumin 4.0 g/dL (3.4-5.0); Alkaline Phosphatase 63 U/L (46-116); Bilirubin, Direct 0.2 mg/dL (0.0-0.2); Bilirubin, Total 1.5 mg/dL (0.2-1.0); Lipase 28 U/L (<78); Total Protein 7.6 g/dL (6.4-8.2)
[2025-07-26 11:30] LABS: C-Reactive Protein < 0.50 mg/dL (<or=0.5)
== END 2025-07-26 10:03 | disposition home or self-care (01) ==
LOC: LBO 10:02
PROVIDERS: PCP Nurse Practitioner; Visit Provider Emergency Medicine
DX: K52.9 Noninfective gastroenteritis and colitis, unspecified (principal); R06.83 Snoring; K76.0 Fatty (change of) liver, not elsewhere classified
CPT/HCPCS: 36415; 80076; 83690; 82150; 86140